=== PATIENT | female | born 1990 | race Two or more races ===

== ENCOUNTER 2021-10-10 03:22 | Emergency (ER) | payer MEDICAID ==
[~2021-10-10] VITALS: Ht 157.5 cm; Wt 84.9 kg
[2021-10-10] MEDS ORDERED: ketorolac trometh. 30mg/ml inj. IV ONE (03:35)
[2021-10-10] MEDS ORDERED: normal saline 1000ML IV soln IVB ONE (03:35)
[2021-10-10 04:22] LABS: URINE HCG NEGATIVE (NEG)
[2021-10-10 04:32] LABS: ALANINE AMINOTRANSFERASE 26 U/L (12-78); ALBUMIN 3.3 G/DL (3.4-5.0); ALBUMIN/GLOBULIN RATIO 0.9 (1.1-1.5); ALKALINE PHOSPHATASE 67 IU/L (46-116); ANION GAP 12 (8-16); ASPARTATE AMINO TRANSFERASE 16 U/L (10-37); BILIRUBIN,TOTAL 0.3 MG/DL (0.1-1.0); BLOOD UREA NITROGEN 10 MG/DL (7-18); BUN/CREATININE RATIO 11.4 (6.6-38.0); CALCIUM 8.6 MG/DL (8.5-10.1); CHLORIDE 104 MMOL/L (99-107); CREATININE 0.88 MG/DL (0.40-0.90); GLUCOSE 126 MG/DL (70-104); LIPASE 104 U/L (73-393); POTASSIUM 3.6 MMOL/L (3.5-5.1); SODIUM 141 MMOL/L (135-145); TOTAL CARBON DIOXIDE 24.9 MMOL/L (24-32); TOTAL PROTEIN 7.1 G/DL (6.4-8.2); eGFR 77 ML/MIN
[2021-10-10 05:24] LABS: BASOPHILS % (AUTO) 0.3 % (0-1); EOSINOPHILS # (AUTO) 0.2 X10'3 (0-0.9); HEMATOCRIT 38.7 % (35.0-45.0); HEMOGLOBIN 12.7 g/dl (12.0-16.0); LYMPHOCYTES # (AUTO) 1.9 X10'3 (1.1-4.8); LYMPHOCYTES % (AUTO) 17.3 % (21-51); MEAN CORPUSCULAR HEMOGLOBIN 28.1 PG (27.0-31.0); MEAN CORPUSCULAR HGB CONC 32.8 g/dL (33.0-36.5); MEAN CORPUSCULAR VOLUME 85.8 FL (78-98); MEAN PLATELET VOLUME 9.7 FL (7.4-10.4); MONOCYTES # (AUTO) 0.6 X10'3 (0-0.9); MONOCYTES % (AUTO) 5.7 % (2-12); NEUTROPHILS # (AUTO) 8.3 X10'3 (1.8-7.7); NEUTROPHILS % (AUTO) 74.7 % (42-75); PLATELET COUNT 215 X10'3 (140-440); RED BLOOD COUNT 4.52 X10'6 (4.20-5.60); RED CELL DISTRIBUTION WIDTH 13.9 % (11.5-14.5); WHITE BLOOD COUNT 11.1 X10'3 (4.5-11.0)
[2021-10-10] MEDS ORDERED: ONDA4TAB12 PO (05:41)
[2021-10-10] MEDS ORDERED: HYDR-3965 PO (05:41)
[2021-10-10 06:50] LABS: CLARITY,URINE SLIGHTLY CLOUDY (Clear); COLOR,URINE YELLOW (Yellow); GLUCOSE, URINE NEGATIVE (Neg); KETONES,URINE NEGATIVE (Neg); LEUKOCYTE ESTERASE ,URINE NEGATIVE (Neg); NITRITES, URINE NEGATIVE (Neg); OCCULT BLOOD,URINE NEGATIVE (Neg); PH,URINE 5.5 (4.8-8.0); PROTEIN,URINE NEGATIVE (Neg); UROBILINOGEN,URINE 0.2 E.U/dL (0.2-1.0)
[2021-10-10 06:55] LABS: UA COLLECTION TYPE CLN CATCH MIDSTREAM
[2021-10-10 07:14] LABS: BACTERIA,URINE FEW /HPF (Neg); RBC,URINE NONE SEEN /HPF (0-2); WBC,URINE 0-4 /HPF (0-4)
[2021-10-10 07:15] LABS: SQUAMOUS EPITHELIAL CELL,UR MANY /LPF (FEW)
[2021-10-10 07:48] VITALS: BP 94/68
== END 2021-10-10 08:00 | disposition home or self-care (01) ==
LOC: ER 03:23
DX: K80.50 Calculus of bile duct without cholangitis or cholecystitis without obstruction (principal); Z79.899 Other long term (current) drug therapy
CPT/HCPCS: 36415; 76700; 80053; 81001; 81025; 83690; 85025; 96361; 96374; 99285; J1885; J7030

== ENCOUNTER 2021-11-22 16:07 | Inpatient (IN) | payer MEDICAID ==
[~2021-11-22] VITALS: Ht 157.5 cm; Wt 83.2 kg
[~2021-11-22 16:07] MED LIST: ONDA4TAB12 PO
[2021-11-22 16:43] LABS: CLARITY,URINE CLOUDY (Clear); COLOR,URINE YELLOW (Yellow); GLUCOSE, URINE NEGATIVE (Neg); KETONES,URINE 15 mg/dl (Neg); LEUKOCYTE ESTERASE ,URINE SMALL (Neg); NITRITES, URINE NEGATIVE (Neg); OCCULT BLOOD,URINE SMALL (Neg); PROTEIN,URINE NEGATIVE (Neg); UROBILINOGEN,URINE 0.2 E.U/dL (0.2-1.0)
[2021-11-22 16:46] LABS: BASOPHILS % (AUTO) 0.1 % (0-1); EOSINOPHILS % (AUTO) 0.2 % (0-6); HEMATOCRIT 40.5 % (35.0-45.0); HEMOGLOBIN 13.6 g/dl (12.0-16.0); LYMPHOCYTES % (AUTO) 7.6 % (21-51); MEAN CORPUSCULAR HEMOGLOBIN 28.9 PG (27.0-31.0); MEAN CORPUSCULAR HGB CONC 33.6 g/dL (33.0-36.5); MEAN CORPUSCULAR VOLUME 85.9 FL (78-98); MEAN PLATELET VOLUME 8.9 FL (7.4-10.4); MONOCYTES # (AUTO) 0.5 X10'3 (0-0.9); MONOCYTES % (AUTO) 3.8 % (2-12); NEUTROPHILS # (AUTO) 11.7 X10'3 (1.8-7.7); NEUTROPHILS % (AUTO) 88.3 % (42-75); PLATELET COUNT 269 X10'3 (140-440); RED BLOOD COUNT 4.72 X10'6 (4.20-5.60); RED CELL DISTRIBUTION WIDTH 14.3 % (11.5-14.5); WHITE BLOOD COUNT 13.2 X10'3 (4.5-11.0)
[2021-11-22 16:50] LABS: UA COLLECTION TYPE CLN CATCH MIDSTREAM
[2021-11-22 16:52] LABS: BACTERIA,URINE 1+ /HPF (Neg); MUCUS STRANDS FEW /LPF (Neg); SQUAMOUS EPITHELIAL CELL,UR MODERATE /LPF (FEW)
[2021-11-22 16:53] LABS: AMORPHOUS URATES 1+; WBC CLUMPS,URINE FEW /HPF (NEGATIVE)
[2021-11-22 16:58] LABS: ALANINE AMINOTRANSFERASE 317 U/L (12-78); ALBUMIN 3.5 G/DL (3.4-5.0); ALBUMIN/GLOBULIN RATIO 0.9 (1.1-1.5); ALKALINE PHOSPHATASE 165 IU/L (46-116); ANION GAP 8 (8-16); ASPARTATE AMINO TRANSFERASE 135 U/L (10-37); BILIRUBIN,TOTAL 1.3 MG/DL (0.1-1.0); BLOOD UREA NITROGEN 10 MG/DL (7-18); BUN/CREATININE RATIO 14.1 (6.6-38.0); CALCIUM 9.2 MG/DL (8.5-10.1); CHLORIDE 102 MMOL/L (99-107); CREATININE 0.71 MG/DL (0.40-0.90); GLUCOSE 111 MG/DL (70-104); POTASSIUM 3.9 MMOL/L (3.5-5.1); SODIUM 137 MMOL/L (135-145); TOTAL CARBON DIOXIDE 26.7 MMOL/L (24-32); TOTAL PROTEIN 7.6 G/DL (6.4-8.2); eGFR > 90 ML/MIN
[2021-11-22 17:19] LABS: LIPASE 29804 U/L (73-393)
--- NOTE | 2021-11-22 18:32 | NUR ---
ASSUMED CARE OF PT. SHE REQUESTED A NEW BLANKET. BLANKET PROVIDED. PT IS SITTING UP AND ENGAGES IN CONVERSATION. ABDOMINAL PAIN IS EXACERBATED BY CERTAIN POSITIONS.
[2021-11-22] MEDS ORDERED: ondansetron/PF 4mg/2ml inj IV ONE (19:40)
[2021-11-22] MEDS ORDERED: morphine 4 MG/ML inj SYRINge IV ONE (19:40)
[2021-11-22] MEDS ORDERED: piperacillin/tazo 4.5gm/100ml 100 ML IV ONE (19:40)
[2021-11-22] MEDS ORDERED: magnesium 4gm in 100ml NS 100 ML IV PRN (20:35)
[2021-11-22] MEDS ORDERED: potassium CL 10mEq/100ml bag 100 ML IV PRN (20:35)
[2021-11-22] MEDS ORDERED: morphine 2 MG/ML inj. syringe IV PRN (20:35)
[2021-11-22] MEDS ORDERED: magnesium 2GM in 50ml NS 50 ML IV PRN (20:35)
[2021-11-22] MEDS ORDERED: acetaminophen 325mg tablet PO PRN (20:35)
[2021-11-22] MEDS ORDERED: HYDROcodone/acetaminophen 5mg/325mg tablet PO PRN (20:35)
[2021-11-22] MEDS: normal saline 1000ml 1,000 ML IV SCH (20:35)
[2021-11-22] MEDS ORDERED: ondansetron/PF 4mg/2ml inj IV PRN (20:35)
[2021-11-22] MEDS ORDERED: POTASSIUM BICARB 20meq eff tab 20 MEQ TABLET.EFF PO PRN ×2 (20:35)
[2021-11-22] MEDS ORDERED: NO HOME MEDS (20:51)
[2021-11-22 22:44] LABS: MAGNESIUM 1.8 MG/DL (1.5-2.4); POTASSIUM 3.7 MMOL/L (3.5-5.1)
[2021-11-23] VITALS: BP 115/64
[2021-11-23] MEDS: normal saline 1000ml 1,000 ML IV SCH ×3 (06:35→23:59)
[2021-11-23 06:44] LABS: ALANINE AMINOTRANSFERASE 226 U/L (12-78); ALBUMIN 2.9 G/DL (3.4-5.0); ALBUMIN/GLOBULIN RATIO 0.9 (1.1-1.5); ALKALINE PHOSPHATASE 129 IU/L (46-116); ANION GAP 6 (8-16); ASPARTATE AMINO TRANSFERASE 73 U/L (10-37); BILIRUBIN,TOTAL 1.3 MG/DL (0.1-1.0); BLOOD UREA NITROGEN 9 MG/DL (7-18); BUN/CREATININE RATIO 13.2 (6.6-38.0); CALCIUM 8.5 MG/DL (8.5-10.1); CHLORIDE 107 MMOL/L (99-107); CREATININE 0.68 MG/DL (0.40-0.90); GLUCOSE 87 MG/DL (70-104); MAGNESIUM 1.8 MG/DL (1.5-2.4); POTASSIUM 3.9 MMOL/L (3.5-5.1); SODIUM 139 MMOL/L (135-145); TOTAL CARBON DIOXIDE 25.7 MMOL/L (24-32); TOTAL PROTEIN 6.3 G/DL (6.4-8.2); eGFR > 90 ML/MIN
[2021-11-23 06:51] VITALS: BP 177/62
[2021-11-23 06:58] LABS: BASOPHILS % (AUTO) 0.2 % (0-1); EOSINOPHILS # (AUTO) 0.1 X10'3 (0-0.9); EOSINOPHILS % (AUTO) 1.5 % (0-6); HEMATOCRIT 36.9 % (35.0-45.0); HEMOGLOBIN 12.2 g/dl (12.0-16.0); LYMPHOCYTES # (AUTO) 1.7 X10'3 (1.1-4.8); LYMPHOCYTES % (AUTO) 21.3 % (21-51); MEAN CORPUSCULAR HEMOGLOBIN 28.9 PG (27.0-31.0); MEAN CORPUSCULAR HGB CONC 33.1 g/dL (33.0-36.5); MEAN CORPUSCULAR VOLUME 87.3 FL (78-98); MEAN PLATELET VOLUME 9.2 FL (7.4-10.4); MONOCYTES # (AUTO) 0.5 X10'3 (0-0.9); MONOCYTES % (AUTO) 6.5 % (2-12); NEUTROPHILS # (AUTO) 5.6 X10'3 (1.8-7.7); NEUTROPHILS % (AUTO) 70.5 % (42-75); PLATELET COUNT 234 X10'3 (140-440); RED BLOOD COUNT 4.23 X10'6 (4.20-5.60); RED CELL DISTRIBUTION WIDTH 14.4 % (11.5-14.5); WHITE BLOOD COUNT 7.9 X10'3 (4.5-11.0)
[2021-11-23] MEDS: K and/or MAG REPLACEMENT MC SCH ×2 (08:00→19:11)
[2021-11-23 10:04] VITALS: BP 105/50
--- NOTE | 2021-11-23 12:11 | NUR ---
Patient down to MRCP.
--- NOTE | 2021-11-23 13:25 | NUR ---
Patient back in room
[2021-11-23] MEDS: piperacillin/tazo 3.375gm/50ml 50 ML IV SCH ×2 (16:19→23:59)
[2021-11-23 16:36] VITALS: BP 106/58
--- NOTE | 2021-11-23 17:39 | NUR ---
Documentation reviewed by Clinical Process Design Chemical Engineer.
[2021-11-23 18:00] VITALS: BP 96/54
--- NOTE | 2021-11-23 18:22 | NUR ---
Problems reprioritized. Patient report given, questions answered & plan of care reviewed with JUDY Queen.
[2021-11-23 22:15] VITALS: BP 109/77
[2021-11-24 06:00] VITALS: BP 112/58
--- NOTE | 2021-11-24 06:40 | NUR ---
Patient in room ORTH[facility] 4012. I have received report from JUDY Burden and had the opportunity to ask questions and assume patient care.
[2021-11-24 06:47] LABS: BASOPHILS % (AUTO) 0.4 % (0-1); EOSINOPHILS # (AUTO) 0.1 X10'3 (0-0.9); EOSINOPHILS % (AUTO) 1.4 % (0-6); HEMATOCRIT 36.8 % (35.0-45.0); LYMPHOCYTES # (AUTO) 1.6 X10'3 (1.1-4.8); LYMPHOCYTES % (AUTO) 22.3 % (21-51); MEAN CORPUSCULAR HEMOGLOBIN 28.4 PG (27.0-31.0); MEAN CORPUSCULAR HGB CONC 32.5 g/dL (33.0-36.5); MEAN CORPUSCULAR VOLUME 87.5 FL (78-98); MEAN PLATELET VOLUME 9.3 FL (7.4-10.4); MONOCYTES # (AUTO) 0.4 X10'3 (0-0.9); NEUTROPHILS # (AUTO) 5.1 X10'3 (1.8-7.7); NEUTROPHILS % (AUTO) 69.9 % (42-75); PLATELET COUNT 210 X10'3 (140-440); RED BLOOD COUNT 4.21 X10'6 (4.20-5.60); RED CELL DISTRIBUTION WIDTH 13.8 % (11.5-14.5); WHITE BLOOD COUNT 7.2 X10'3 (4.5-11.0)
[2021-11-24 06:53] LABS: ALANINE AMINOTRANSFERASE 177 U/L (12-78); ALBUMIN 2.8 G/DL (3.4-5.0); ALBUMIN/GLOBULIN RATIO 0.8 (1.1-1.5); ALKALINE PHOSPHATASE 118 IU/L (46-116); ANION GAP 13 (8-16); ASPARTATE AMINO TRANSFERASE 50 U/L (10-37); BLOOD UREA NITROGEN 8 MG/DL (7-18); BUN/CREATININE RATIO 13.3 (6.6-38.0); CALCIUM 8.8 MG/DL (8.5-10.1); CHLORIDE 107 MMOL/L (99-107); GLUCOSE 57 MG/DL (70-104); MAGNESIUM 1.3 MG/DL (1.5-2.4); POTASSIUM 4.2 MMOL/L (3.5-5.1); SODIUM 140 MMOL/L (135-145); TOTAL CARBON DIOXIDE 20.2 MMOL/L (24-32); TOTAL PROTEIN 6.4 G/DL (6.4-8.2); eGFR > 90 ML/MIN
--- NOTE | 2021-11-24 07:29 | NUR ---
PAGER ID: [phone] MESSAGE: Lupe [id number] room 4012A blood sugar 52 and patient is NPO for potential gallbladder removal. Can I get an order for dextrose iv. Thank you.
[2021-11-24] MEDS ORDERED: dextrose 50%-water 50ml dispensing syringe IV ONE (07:40)
[2021-11-24] MEDS: K and/or MAG REPLACEMENT MC SCH ×2 (08:00→20:00)
--- NOTE | 2021-11-24 08:30 | NUR ---
Blood sugar checked again 126.
[2021-11-24] MEDS: piperacillin/tazo 3.375gm/50ml 50 ML IV SCH ×2 (08:46→16:59)
[2021-11-24] MEDS: dextrose 5%-water 1,000 ML IV SCH ×3 (08:50→23:41)
--- NOTE | 2021-11-24 09:33 | NUR ---
Dr. La stopped by to see the patient. He stated that her lipase is too high and will continue to monitor her labs. When lipase is 600-700 patient will be a candidate for surgery (maybe Sunday).
[2021-11-24 10:00] VITALS: BP 114/64
[2021-11-24 10:07] LABS: APTT 28 SECONDS (22-32)
[2021-11-24] MEDS: magnesium Cl slow-release 64mg tablet PO PRN ×2 (13:23→23:39)
[2021-11-24 14:00] VITALS: BP 128/65
[2021-11-24 17:00] VITALS: BP 110/71
--- NOTE | 2021-11-24 18:53 | NUR ---
Problems reprioritized. Patient report given, questions answered & plan of care reviewed with JUDY Gómez.
[2021-11-24 22:00] VITALS: BP 133/61
[2021-11-25] MEDS: piperacillin/tazo 3.375gm/50ml 50 ML IV SCH ×3 (00:53→16:09)
[2021-11-25 06:00] VITALS: BP 94/51
--- NOTE | 2021-11-25 06:25 | NUR ---
Problems reprioritized. Patient report given, questions answered & plan of care reviewed with JUDY Vargas.
--- NOTE | 2021-11-25 06:52 | NUR ---
Patient in room ORTHO 4012. I have received report from JUDY Gómez and had the opportunity to ask questions and assume patient care.
[2021-11-25 06:56] LABS: BASOPHILS % (AUTO) 0.4 % (0-1); EOSINOPHILS # (AUTO) 0.2 X10'3 (0-0.9); EOSINOPHILS % (AUTO) 2.5 % (0-6); HEMATOCRIT 36.7 % (35.0-45.0); HEMOGLOBIN 12.2 g/dl (12.0-16.0); LYMPHOCYTES # (AUTO) 1.6 X10'3 (1.1-4.8); LYMPHOCYTES % (AUTO) 24.3 % (21-51); MEAN CORPUSCULAR HEMOGLOBIN 28.6 PG (27.0-31.0); MEAN CORPUSCULAR HGB CONC 33.1 g/dL (33.0-36.5); MEAN CORPUSCULAR VOLUME 86.2 FL (78-98); MEAN PLATELET VOLUME 9.5 FL (7.4-10.4); MONOCYTES # (AUTO) 0.6 X10'3 (0-0.9); MONOCYTES % (AUTO) 9.6 % (2-12); NEUTROPHILS # (AUTO) 4.2 X10'3 (1.8-7.7); NEUTROPHILS % (AUTO) 63.2 % (42-75); PLATELET COUNT 236 X10'3 (140-440); RED BLOOD COUNT 4.26 X10'6 (4.20-5.60); RED CELL DISTRIBUTION WIDTH 13.7 % (11.5-14.5); WHITE BLOOD COUNT 6.7 X10'3 (4.5-11.0)
[2021-11-25] MEDS: K and/or MAG REPLACEMENT MC SCH ×2 (08:00→18:40)
[2021-11-25 08:11] LABS: ALANINE AMINOTRANSFERASE 128 U/L (12-78); ALBUMIN 2.9 G/DL (3.4-5.0); ALBUMIN/GLOBULIN RATIO 0.8 (1.1-1.5); ALKALINE PHOSPHATASE 111 IU/L (46-116); ANION GAP 8 (8-16); ASPARTATE AMINO TRANSFERASE 25 U/L (10-37); BILIRUBIN,TOTAL 0.6 MG/DL (0.1-1.0); BLOOD UREA NITROGEN 6 MG/DL (7-18); BUN/CREATININE RATIO 8.2 (6.6-38.0); CALCIUM 8.6 MG/DL (8.5-10.1); CHLORIDE 108 MMOL/L (99-107); CREATININE 0.73 MG/DL (0.40-0.90); GLUCOSE 100 MG/DL (70-104); MAGNESIUM 1.8 MG/DL (1.5-2.4); POTASSIUM 3.8 MMOL/L (3.5-5.1); SODIUM 141 MMOL/L (135-145); TOTAL CARBON DIOXIDE 24.7 MMOL/L (24-32); TOTAL PROTEIN 6.5 G/DL (6.4-8.2); eGFR > 90 ML/MIN
[2021-11-25 10:00] VITALS: BP 105/64
[2021-11-25 14:00] VITALS: BP 100/70
[2021-11-25] MEDS: dextrose 5%-water 1,000 ML IV SCH ×2 (14:10→22:30)
[2021-11-25 18:00] VITALS: BP 107/61
--- NOTE | 2021-11-25 18:46 | NUR ---
Problems reprioritized. Patient report given, questions answered & plan of care reviewed with JUDY Sandra.
[2021-11-25 22:00] VITALS: BP 118/59
[2021-11-26] VITALS (17 sets, daily range): BP systolic 96–131; BP diastolic 51–93
[2021-11-26] MEDS: piperacillin/tazo 3.375gm/50ml 50 ML IV SCH ×2 (00:01→07:51)
--- NOTE | 2021-11-26 06:13 | NUR ---
Problems reprioritized. Patient report given, questions answered & plan of care reviewed with JUDY Andrade.
[2021-11-26 06:16] LABS: BASOPHILS % (AUTO) 0.4 % (0-1); EOSINOPHILS # (AUTO) 0.2 X10'3 (0-0.9); EOSINOPHILS % (AUTO) 2.6 % (0-6); HEMATOCRIT 38.3 % (35.0-45.0); HEMOGLOBIN 12.8 g/dl (12.0-16.0); LYMPHOCYTES # (AUTO) 1.9 X10'3 (1.1-4.8); LYMPHOCYTES % (AUTO) 28.3 % (21-51); MEAN CORPUSCULAR HEMOGLOBIN 29.1 PG (27.0-31.0); MEAN CORPUSCULAR HGB CONC 33.4 g/dL (33.0-36.5); MEAN CORPUSCULAR VOLUME 87.2 FL (78-98); MEAN PLATELET VOLUME 9.3 FL (7.4-10.4); MONOCYTES # (AUTO) 0.5 X10'3 (0-0.9); MONOCYTES % (AUTO) 7.3 % (2-12); NEUTROPHILS # (AUTO) 4.2 X10'3 (1.8-7.7); NEUTROPHILS % (AUTO) 61.4 % (42-75); PLATELET COUNT 267 X10'3 (140-440); RED BLOOD COUNT 4.39 X10'6 (4.20-5.60); RED CELL DISTRIBUTION WIDTH 13.4 % (11.5-14.5); WHITE BLOOD COUNT 6.9 X10'3 (4.5-11.0)
[2021-11-26 06:29] LABS: ALANINE AMINOTRANSFERASE 110 U/L (12-78); ALBUMIN 3.2 G/DL (3.4-5.0); ALBUMIN/GLOBULIN RATIO 0.8 (1.1-1.5); ALKALINE PHOSPHATASE 113 IU/L (46-116); ANION GAP 7 (8-16); ASPARTATE AMINO TRANSFERASE 20 U/L (10-37); BILIRUBIN,TOTAL 0.6 MG/DL (0.1-1.0); BLOOD UREA NITROGEN 6 MG/DL (7-18); BUN/CREATININE RATIO 7.7 (6.6-38.0); CALCIUM 8.8 MG/DL (8.5-10.1); CHLORIDE 107 MMOL/L (99-107); CREATININE 0.78 MG/DL (0.40-0.90); GLUCOSE 108 MG/DL (70-104); MAGNESIUM 1.5 MG/DL (1.5-2.4); POTASSIUM 3.2 MMOL/L (3.5-5.1); SODIUM 140 MMOL/L (135-145); TOTAL CARBON DIOXIDE 26.3 MMOL/L (24-32); eGFR 87 ML/MIN
--- NOTE | 2021-11-26 06:38 | NUR ---
Patient in room ORTHO 4012. I have received report from JUDY Sandra and had the opportunity to ask questions and assume patient care.
--- NOTE | 2021-11-26 07:44 | NUR ---
PAGER ID: [phone] MESSAGE: Lupe [id number] room 4012A K is 3.2 and her replacement order fell off the MAR. Can you please reactivate the order. Thank you.
[2021-11-26] MEDS: dextrose 5%-water 1,000 ML IV SCH (07:51)
[2021-11-26] MEDS: K and/or MAG REPLACEMENT MC SCH (08:00)
[2021-11-26] MEDS ORDERED: magnesium 2GM in 50ml NS 50 ML IV PRN (08:40)
[2021-11-26] MEDS ORDERED: magnesium Cl slow-release 64mg tablet PO PRN (08:40)
[2021-11-26] MEDS ORDERED: potassium CL 10mEq/100ml bag 100 ML IV PRN (08:40)
[2021-11-26] MEDS ORDERED: magnesium 4gm in 100ml NS 100 ML IV PRN (08:40)
[2021-11-26] MEDS ORDERED: POTASSIUM BICARB 20meq eff tab 20 MEQ TABLET.EFF PO PRN ×2 (08:40)
--- NOTE | 2021-11-26 09:44 | NUR ---
Initial: Pt admit for gallstone pancreatitis. Pt currently NPO for OR pending cholecystectomy however previously on a low fat/low CHOL diet and eating well with mostly 100% PO intake. Noted pt receiving D5 at 100 mL/hr which provides 408 kcal/day. LBM 5/6. No nutrition intervention implemented at this time. Will continue to follow. Recommendations: 1) Advance to regular versus low fat diet as medically indicated post-op 2) Bowel care PRN 3) Scaled weight this admit; subsequent weekly scaled weights Addendum: 11/26/21 at [address] Amended: Links added.
[2021-11-26 10:51] LABS: URINE HCG NEGATIVE (NEG)
[2021-11-26 11:43] LABS: MAGNESIUM 1.7 MG/DL (1.5-2.4); POTASSIUM 3.8 MMOL/L (3.5-5.1)
[2021-11-26] MEDS ORDERED: ondansetron/PF 4mg/2ml inj IV PRN ×2 (12:15→14:35)
[2021-11-26] MEDS ORDERED: meperidine/PF 25mg/ml syringe IV PRN ×2 (12:15)
[2021-11-26] MEDS ORDERED: INDOCYANINE GREEN 25 MG/10 ML VIAL IV ONE (12:15)
[2021-11-26] MEDS ORDERED: proCHLORperazine 10 MG/2 ml inj IV PRN (12:15)
[2021-11-26] MEDS ORDERED: ringers solution, lacted 1,000 ML IV SCH (12:15)
[2021-11-26] MEDS ORDERED: morphine 2 MG/ML inj. syringe IV PRN (12:15)
[2021-11-26] MEDS ORDERED: morphine 4 MG/ML inj SYRINge IV PRN (12:15)
[2021-11-26] MEDS ORDERED: midazolam 1 mg/ML 2ml injection ONE (12:17)
[2021-11-26] MEDS ORDERED: fentaNYL/PF 50MCG/1 ML 2ML syringe ONE (12:17)
[2021-11-26] MEDS ORDERED: propofol inj 20 ML IV ONE (12:18)
[2021-11-26] MEDS ORDERED: rocuronium 10mg/ml inj IV ONE (12:18)
[2021-11-26] MEDS ORDERED: LIDOcaine 2% (20mg/ml) 5ml vial ONE (12:18)
[2021-11-26] MEDS ORDERED: BUPIVAcaine 0.5% inj/PF 30 ML ONE (12:54)
[2021-11-26] MEDS ORDERED: LIDOcaine 1% 30ml preserv. free vial ONE (12:54)
[2021-11-26] MEDS ORDERED: ondansetron/PF 4mg/2ml inj ONE (13:32)
[2021-11-26] MEDS ORDERED: ceFAZolin 1000mg inj ONE ×2 (13:43)
[2021-11-26] MEDS ORDERED: BUPIVAcaine 0.5% inj/PF 30 ml vial IJ ONE (13:51)
[2021-11-26] MEDS ORDERED: meperidine/PF 25mg/ml syringe ONE (14:02)
[2021-11-26] MEDS ORDERED: ketorolac trometh. 30mg/ml inj. ONE (14:03)
[2021-11-26] MEDS ORDERED: HYDROcodone/acetaminophen 5mg/325mg tablet PO PRN (14:35)
[2021-11-26] MEDS ORDERED: HYDROcodone/acetaminophen 10/325mg tab PO PRN (14:35)
[2021-11-26] MEDS ORDERED: naloxone 0.4 mg/ml inj IV PRN (14:35)
--- NOTE | 2021-11-26 14:35 | NUR ---
Received from OR via BED, accompanied by Anesthesiologist YAZ and report given by Anesthesiolgist. PT DROWSY, OXYGENATING WELL ON 10 LPM VIA MASK, NO RESP DISTRESS NOTED. PT DENIES NAUSEA OR PAIN AT THIS TIME. 4 ABD TROCAR SITES WITH LARGE BANDAIDS, CDI. VSS. SCDS ON.
[2021-11-26] MEDS: meperidine/PF 25mg/ml syringe IV PRN ×2 (15:06→15:19)
--- NOTE | 2021-11-26 15:45 | NUR ---
Report called to receiving nurse. Transferred via BED Belongings IN PT ROOM. VSS. TOLERATING PO FLUIDS WELL. PAIN LEVEL TRENDING DOWN AFTER MEDS GIVEN IN PACU. TRANSFERRED TO ORTHO FLOOR IN STABLE CONDITION. Special Issues communicated to receiving nurse.
--- NOTE | 2021-11-26 18:50 | NUR ---
Notified production supervisor off shift nurse that if the patient is able to pass gas and void and tolerating clear liquid diet she can go home tonight. shift foreman nurse will have to contact Dr. Aguilar who will put in discharge orders so she can go home.
--- NOTE | 2021-11-26 18:53 | NUR ---
Problems reprioritized. Patient report given, questions answered & plan of care reviewed with JUDY Lipscomb.
[2021-11-26] MEDS ORDERED: K and/or MAG REPLACEMENT MC SCH (20:00)
--- NOTE | 2021-11-26 20:09 | NUR ---
Called Dr. Aguilar to make him aware pt ready for discharge. Pt states she has ambulated, urinated and is passing gas. Discharge instructions reviewed. Pt driven home via partner at bedside. Vitals: 108/66 (77) 68 heart rate 98% O2 0/10 pain 36.8 deg C oral temp
== END 2021-11-26 20:12 | disposition home or self-care (01) | DRG 263 ==
LOC: ER 16:08 → ED HOLD 20:38 → ORTHO 4S 22:50
PROVIDERS: ADMIT Internal Medicine; ATTEND Family Medicine
PROC: 8E0W4CZ Robotic Assisted Procedure of Trunk Region, Percutaneous Endoscopic Approach (ICD-10-PCS; 2021-11-26)
PROC: BF532Z0 Other Imaging of Gallbladder and Bile Ducts using Fluorescing Agent, Intraoperative (ICD-10-PCS; 2021-11-26)
PROC: 0FT44ZZ Resection of Gallbladder, Percutaneous Endoscopic Approach (ICD-10-PCS; principal; 2021-11-26 13:10)
DX: K85.10 Biliary acute pancreatitis without necrosis or infection (principal); K80.00 Calculus of gallbladder with acute cholecystitis without obstruction; Z20.822 Contact with and (suspected) exposure to COVID-19; R74.01 Elevation of levels of liver transaminase levels; E66.9 Obesity, unspecified; N39.0 Urinary tract infection, site not specified; R31.9 Hematuria, unspecified; Z79.899 Other long term (current) drug therapy; Z68.33 Body mass index [BMI] 33.0-33.9, adult
CPT/HCPCS: 36415; 74181; 76700; 80053; 81001; 81025; 82948; 83690; 83735; 84132; 85025; 85610; 85730; 87081; 87088; 87635; 96365; 96375; 99285; A4215; A4618; A7000; G0378; J0690; J1885; J2175; J2250; J2270; J2405; J2543; J2704; J3010; J3490; J7030; J7070; J7120; S0020